=== PATIENT | female | born 1990 | race Caucasian/White ===

== ENCOUNTER 2018-03-22 20:52 | Emergency (ER) | payer OTHER ==
[2018-03-22 20:56] VITALS: BP 103/58
[2018-03-22] MEDS ORDERED: Amoxicillin/Clavulanate TAB* 875 MG PO ONE (21:15)
[2018-03-22] MEDS ORDERED: Neomyc/Polym/HC 1% OTIC SUSP* **OTIC LEFT EAR ONE (21:15)
--- NOTE | 2018-03-22 21:18 | UC ---
Abdulkadir Bonilla Elizabeth, scribed for Rishi Felipe MD on 03/22/18 at 2110 . Ear Complaint HPI - HPI Summary HPI Summary: This patient is a 27 year old F presenting to [facility] with a chief complaint of left ear pain since 3 days ago. The patient rates the pain 0/10 in severity. Symptoms aggravated by pressing on it. Symptoms alleviated by nothing. Patient reports that it feels like it is clogged. The patient also notes that she has been swimming a lot recently. Patient denies any drainage. - History of Current Complaint Chief Complaint: UCEar Stated Complaint: EAR PAIN Time Seen by Provider: 03/22/18 21:01 Hx Obtained From: Patient Hx Last Menstrual Period: 2 WEEKS AGO Onset/Duration: Gradual Onset, Lasting Days - 3 days, Still Present Severity Initially: Mild Severity Currently: None Pain Intensity: 0 Pain Scale Used: 0-10 Numeric Aggravating Factors: Other - pressing on it Alleviating Factors: Nothing Associated Signs/Symptoms: Negative: Discharge - Allergies/Home Medications Allergies/Adverse Reactions: Allergies Allergy/AdvReac Type Severity Reaction Status Date / Time No Known Allergies Allergy Verified 03/22/18 20:56 PMH/Surg Hx/FS Hx/Imm Hx - Additional Past Medical History Additional PMH: mono, many ear infections as a child - Surgical History Surgical History: Yes Surgery Procedure, Year, and Place: TONSILLECTOMY - Family History Known Family History: Positive: None - Social History Alcohol Use: None Substance Use Type: None Smoking Status (MU): Never Smoked Tobacco Review of Systems Constitutional: Negative - negative fever ENT: Ear Ache - left ear pain Respiratory: Negative - negative cough Gastrointestinal: Negative - negative vomiting All Other Systems Reviewed And Are Negative: Yes Physical Exam - Summary Physical Exam Summary: General: well-appearing, no pain distress Skin: warm, color reflects adequate perfusion, dry Head: normal Eyes: EOMI, FAB ENT: erythema in left ear canal, some clear drainage in left ear, tender to palpation to tragus, tender to traction on pinnae on left ear Neck: supple, nontender Respiratory: CTA, breath sounds present Cardiovascular: RRR Abdomen: soft, nontender Bowel: present Musculoskeletal: normal, strength/ROM intact Neurological: sensory/motor intact, A&O x3 Psychological: affect/mood appropriate Triage Information Reviewed: Yes Vital Signs: Initial Vital Signs Temp 98.4 F 07/09/18 20:53 Pulse 65 03/22/18 20:53 Resp 16 03/22/18 20:53 BP 103/58 03/22/18 20:53 Pulse Ox 100 03/22/18 20:53 Vital Signs Reviewed: Yes Ear Complaint Course/Dx - Differential Dx/Diagnosis Provider Diagnoses: LEFT OTITIS EXTERNA Discharge - Sign-Out/Discharge Documenting (check all that apply): Discharge/Admit/Transfer - Discharge Plan Condition: Stable Disposition: HOME Discharge Disposition Comment: discharge home Prescriptions: Amoxicillin/Clavulanate TAB* [Augmentin TAB 875*] 875 mg PO BID #19 tab Patient Education Materials: Otitis Externa (ED) Referrals: [facility] [Outside] Additional Instructions: FOLLOW UP WITH YOUR DOCTOR IF NOT COMPLETELY IMPROVED. GET RECHECKED FOR ANY WORSENING OF YOUR CONDITION OR QUESTIONS OR CONCERNS. - Billing Disposition and Condition Condition: STABLE Disposition: Home The documentation as recorded by the Abdulkadir morrison Elizabeth accurately reflects the service I personally performed and the decisions made by me, Rishi Felipe MD.
== END 2018-03-22 21:35 | disposition home or self-care (01) ==
LOC: UCEAST 20:52
DX: H60.92 Unspecified otitis externa, left ear (principal)
CPT/HCPCS: 99202; A9270-GY; G0463